=== PATIENT | male | born 1955 | race Caucasian/White ===

== ENCOUNTER → 2017-09-14 | Outpatient (CLI) | payer MEDICAID | LOC: FIMAGING 10:48 | PROVIDERS: ATTEND Physician Assistant Medical | DX: M79.605 Pain in left leg (principal) ==

== ENCOUNTER → 2017-09-21 | Outpatient (CLI) | payer MEDICAID | LOC: FIMAGING 13:44 | PROVIDERS: ATTEND Physician Assistant Medical | DX: M25.541 Pain in joints of right hand (principal); M25.542 Pain in joints of left hand ==